=== PATIENT | male | born 1990 | race African-American/Black ===

== ENCOUNTER 2016-05-25 19:00 | Emergency (ER) | payer OTHER ==
[2016-05-25] MEDS ORDERED: ONDANSETRON 4MG/2ML VIAL (J2405) As Ordered ONE (19:39)
[2016-05-25] MEDS ORDERED: KETOROLAC 30 MG/ML VIAL (J1885) As Ordered ONE (19:39)
[2016-05-25 20:06] LABS: BASO % 0.3 % (0.0-1.0); EOS # 0.2 K/mm3 (0.0-0.50); EOS % 3.8 % (0.0-3.0); LARGE UNSTAINED CELL # 0.1 K/mm3 (0.0-0.4); LARGE UNSTAINED CELL % 3.3 % (0.0-4.0); LYMPH # 1.5 K/mm3 (1.5-6.5); LYMPH % 31.3 % (24.0-44.0); MEAN CORPUSCULAR HEMOGLOBIN 28.4 pg (27.0-33.0); MEAN CORPUSCULAR HGB CONC 32.9 g/dl (32.0-36.5); MEAN CORPUSCULAR VOLUME 86.6 fl (80.0-96.0); MONO # 0.5 K/mm3 (0.0-0.8); MONO % 10.6 % (0.0-5.0); NEUTROPHILS # 2.2 K/mm3 (1.8-7.7); NEUTROPHILS % 50.6 % (36.0-66.0); PLATELET COUNT, AUTOMATED 222 k/mm3 (150-450); RED CELL DISTRIBUTION WIDTH 12.4 % (11.5-14.5); WHITE BLOOD COUNT 4.4 K/mm3 (4.0-10.0)
[2016-05-25 20:23] LABS: INR 1.02
[2016-05-25 20:32] LABS: ALBUMIN 3.6 GM/DL (3.2-5.2); ALBUMIN/GLOBULIN RATIO 1.13 (1.00-1.93); ALKALINE PHOSPHATASE 107 U/L (45-117); ALT/SGPT 52 U/L (12-78); AMYLASE 77 U/L (25-115); ANION GAP 8 MEQ/L (8-16); AST/SGOT 23 U/L (15-37); BILIRUBIN,DIRECT 0.1 MG/DL (0.0-0.2); BILIRUBIN,TOTAL 0.4 MG/DL (0.2-1.0); BLOOD UREA NITROGEN 13 MG/DL (7-18); CALCIUM LEVEL 8.6 MG/DL (8.5-10.1); CARBON DIOXIDE LEVEL 31 MEQ/L (21-32); CHLORIDE LEVEL 105 MEQ/L (98-107); GLOMERULAR FILTRATION RATE > 60.0 (>60); GLUCOSE, FASTING 64 MG/DL (70-105); POTASSIUM SERUM 3.7 MEQ/L (3.5-5.1); SODIUM LEVEL 144 MEQ/L (136-145); TOTAL PROTEIN 6.8 GM/DL (6.4-8.2)
--- NOTE | 2016-05-25 20:52 | EDDOCDS ---
Nurse's Notes [facility] Name: Rosi Banks Age: 26 yrs Sex: Male : 1990 Arrival Date: 05/25/2016 Time: 19:00 Bed I8 / 16 Private MD: NO PRIMARY PHYSICIAN, .; DEAN Lang Diagnosis: Nausea;Abdominal and pelvic pain Presentation: 05/25 19:14 Presenting complaint: Patient states: nausea x3-4 days. Mid abd pain. Denies ttb diarrhea/constipation. Occasionally fever. Adult Sepsis Screening: The patient does not have new or worsening altered mentation. Patient's respiratory rate is less than 22. Systolic blood pressure is greater than 100. Patient has a qSOFA score of 0- Negative Sepsis Screen. Suicide/Homicide risk assessment- the patient denies having any suicidal and/or homicidal ideations and does not present with any other emotional, behavioral or mental health complaints. 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 Transition of care: patient was not received from another setting of care. 19:14 Acuity: JEYSON Level 4 ttb 19:14 Method Of Arrival: Walkin/Carried/Asstd ttb Triage Assessment: 19:17 General: Appears in no apparent distress, well nourished, well groomed, Behavior is ttb appropriate for age, cooperative, pleasant. Pain: Location: mid abd Pain currently is 6 out of 10 on a pain scale. HIV screening NA for this visit Offered previously. Neurological: Level of Consciousness is awake, alert. Cardiovascular: Chest pain is denied. Respiratory: No deficits noted. Airway is patent Denies cough, shortness of breath. GI: Reports lower abdominal pain, upper abd pain, nausea, Denies constipation, diarrhea. Derm: Skin is normal. Historical: - Allergies: novaine; PENICILLINS; - Home Meds: 1. Tylenol 325 mg Oral tab 2 tabs every 3 hours (Last dose: 05/25/2016 08:00) 2. ondansetron HCl 4 mg Oral tab 1 tabs as needed (Last dose: 05/25/2016 09:00) - PMHx: none; - PSHx: none; - Social history: Smoking status: Patient states was never smoker of tobacco. Patient/guardian denies using alcohol, street drugs, No barriers to communication noted, The patient speaks fluent Uzbek, Speaks appropriately for age. - Family history: Not pertinent. - : The pt / caregiver states he / she is not on anticoagulants. Home medication list is obtained from the patient. - Exposure Risk Screening:: None identified. Screenin:36 Screening information is obtained from the patient. Fall risk: No risks identified. kas2 Assistance ADL's: requires no assistance with activities of daily living. Abuse/DV Screen: The patient / caregiver reports he/she is: not in a situation that causes fear, pain or injury. Nutritional screening: No deficits noted. Advance Directives: Currently, there is no health care proxy. There is no active DNR order. There is no living will. There is no Power of Regional Business Manager. home support is adequate. Assessment: 19:35 General: Appears in no apparent distress, comfortable, well nourished, well groomed, kas2 Behavior is appropriate for age, cooperative. Pain: Location: headache and abdominal pain Pain currently is 5 out of 10 on a pain scale. Neurological: Level of Consciousness is awake, alert, Oriented to person, place, time. Cardiovascular: Capillary refill < 3 seconds Rhythm is regular. Respiratory: Airway is patent Respiratory effort is even, unlabored, Respiratory pattern is regular, symmetrical, Breath sounds are clear bilaterally. GI: Abdomen is flat, non- distended Bowel sounds present X 4 quads. Abd is tender to palpation X 4 quads. Derm: Skin is intact, Skin is dry, Skin temperature is warm. 20:33 General: Appears in no apparent distress, comfortable, Behavior is appropriate for age, kas2 cooperative. Pain: Denies pain. Neurological: Level of Consciousness is awake, alert, Oriented to person, place, time. Respiratory: Airway is patent Respiratory effort is even, unlabored, Respiratory pattern is regular, symmetrical. Derm: Skin is intact, Skin is dry, Skin temperature is warm. 20:49 General: Appears in no apparent distress, Behavior is cooperative, Pt reports decreased ld5 nausea and pain. Respiratory: Airway is patent Respiratory effort is even, unlabored. Vital Signs: 19:02 BP 166 / 83; Pulse 72; Resp 17; Temp 97.6(T); Pulse Ox 99% on R/A; Weight 72.57 kg (R); lr2 Height 5 ft. 10 in. (177.80 cm) (R); Pain 7/10; 20:49 BP 149 / 81; Pulse 79; Resp 16; Temp 98; Pulse Ox 97% on R/A; Pain 2/10; ld5 19:02 Body Mass Index 22.96 (72.57 kg, 177.80 cm) lr2 Vitals: 19:02 Log In Time: May 25, 2016 at 19:00. lr2 ED Course: 19:01 Patient visited by Mulu Sigala. lr2 19:01 Patient moved to Waiting lr2 19:02 NO PRIMARY PHYSICIAN, . is Private Physician. lr2 [facility]. lr2 19:02 Patient moved to Pre RCE lr2 19:15 Triage Initiated ttb 19:31 [facility]. ke 19:31 Patient visited by Sergio Rodriguez FNP. ke 19:31 Patient visited by Sergio Rodriguez FNP. ke 19:31 Patient moved to I8 / 16 ke 19:33 Patient visited by Crystal Rangel RN. kas2 19:36 Patient visited by Crystal Rangel RN. kas2 19:52 CBC with Diff Sent. kas2 19:52 Lipase Sent. kas2 19:52 Liver Profile Sent. kas2 19:52 Prothrombin Time Profile\E\INR Sent. kas2 19:52 Urinalysis Sent. kas2 19:52 Urine Culture Sent. kas2 19:53 Patient visited by Crystal Rangel RN. kas2 19:53 Inserted saline lock: 20 gauge in left antecubital area and blood collected. The kas2 patient tolerated the procedure well. No procedures done that require assistance. 20:19 Patient visited by Sergio Rodriguez FNP. ke 20:34 Patient visited by Crystal Rangel RN. kas2 20:41 Lang, [facility] is Referral Physician. ke 20:49 The patient / caregiver is instructed regarding the plan of care and ED course. Patient ld5 has correct armband on for positive identification. 20:49 Discontinued lock intact, bleeding controlled, pressure dressing applied, No ld5 redness/swelling at site. 20:51 Patient visited by Mulu Max RN. ld5 Administered Medications: 19:52 Drug: NS 0.9% 1000 ml [sodium chloride 0.9 % intravenous solution] Route: IV; Rate: kas2 bolus; Site: left antecubital; 20:50 Follow up: IV Status: Completed infusion; IV Intake: 1000ml ld5 19:53 Drug: Ondansetron 4 mg [ondansetron HCl 2 mg/mL intravenous solution (2 mL)] Route: kas2 IVP; Site: left antecubital; 20:50 Follow up: Response: Nausea is decreased ld5 19:53 Drug: ketorolac 30 mg [ketorolac 30 mg/mL (1 mL) injection solution (1 mL)] Route: IVP; kas2 Site: left antecubital; 20:51 Follow up: Response: Pain is decreased ld5 Intake: 20:50 IV: 1000.00ml; Total: 1000.00ml. ld5 Order Results: Lab Order: Amylase; SPEC'M 05/25/16 19:45 Test: AMYLASE; Value: 77; Range: 25-115; Units: U/L; Status: F Lab Order: Basic Metabolic Profile; SPEC'M 05/25/16 19:45 Test: GLUCOSE, FASTING; Value: 64; Range: 70-105; Abnormal: Below low normal; Units: MG/DL; Status: F Test: BLOOD UREA NITROGEN; Value: 13; Range: 7-18; Units: MG/DL; Status: F Test: CREATININE FOR GFR; Value: 1.10; Range: 0.70-1.30; Units: MG/DL; Status: F Test: GLOMERULAR FILTRATION RATE; Value: > 60.0; Range: >60; Status: F Test: SODIUM LEVEL; Value: 144; Range: 136-145; Units: MEQ/L; Status: F Test: POTASSIUM SERUM; Value: 3.7; Range: 3.5-5.1; Units: MEQ/L; Status: F Test: CHLORIDE LEVEL; Value: 105; Range: 98-107; Units: MEQ/L; Status: F Test: CARBON DIOXIDE LEVEL; Value: 31; Range: 21-32; Units: MEQ/L; Status: F Test: ANION GAP; Value: 8; Range: 8-16; Units: MEQ/L; Status: F Test: CALCIUM LEVEL; Value: 8.6; Range: 8.5-10.1; Units: MG/DL; Status: F Test Note: ; Units are mL/min/1.73 m2 Chronic Kidney Disease Staging per NKF: Stage I & II GFR >=60 Normal to Mildly Decreased Stage III GFR 30-59 Moderately Decreased Stage IV GFR 15-29 Severely Decreased Stage V GFR <15 Very Little GFR Left ESRD GFR <15 on DOPE WORKER Lab Order: CBC with Diff; CHRISTI 05/25/16 19:45 Test: WHITE BLOOD COUNT; Value: 4.4; Range: 4.0-10.0; Units: K/mm3; Status: F Test: RED BLOOD COUNT; Value: 5.46; Range: 4.30-6.10; Units: M/mm3; Status: F Test: HEMOGLOBIN; Value: 15.5; Range: 14.0-18.0; Units: g/dl; Status: F Test: HEMATOCRIT; Value: 47.3; Range: 42.0-52.0; Units: %; Status: F Test: MEAN CORPUSCULAR VOLUME; Value: 86.6; Range: 80.0-96.0; Units: fl; Status: F Test: MEAN CORPUSCULAR HEMOGLOBIN; Value: 28.4; Range: 27.0-33.0; Units: pg; Status: F Test: MEAN CORPUSCULAR HGB CONC; Value: 32.9; Range: 32.0-36.5; Units: g/dl; Status: F Test: RED CELL DISTRIBUTION WIDTH; Value: 12.4; Range: 11.5-14.5; Units: %; Status: F Test: PLATELET COUNT, AUTOMATED; Value: 222; Range: 150-450; Units: k/mm3; Status: F Test: NEUTROPHILS %; Value: 50.6; Range: 36.0-66.0; Units: %; Status: F Test: LYMPH %; Value: 31.3; Range: 24.0-44.0; Units: %; Status: F Test: MONO %; Value: 10.6; Range: 0.0-5.0; Abnormal: Above high normal; Units: %; Status: F Test: EOS %; Value: 3.8; Range: 0.0-3.0; Abnormal: Above high normal; Units: %; Status: F Test: BASO %; Value: 0.3; Range: 0.0-1.0; Units: %; Status: F Test: LARGE UNSTAINED CELL %; Value: 3.3; Range: 0.0-4.0; Units: %; Status: F Test: NEUTROPHILS #; Value: 2.2; Range: 1.8-7.7; Units: K/mm3; Status: F Test: LYMPH #; Value: 1.5; Range: 1.5-6.5; Units: K/mm3; Status: F Test: MONO #; Value: 0.5; Range: 0.0-0.8; Units: K/mm3; Status: F Test: EOS #; Value: 0.2; Range: 0.0-0.50; Units: K/mm3; Status: F Test: BASO #; Value: 0.0; Range: 0.0-0.2; Units: K/mm3; Status: F Test: LARGE UNSTAINED CELL #; Value: 0.1; Range: 0.0-0.4; Units: K/mm3; Status: F Lab Order: Lipase; [facility]' 05/25/16 19:45 Test: LIPASE; Value: 84; Range: 73-393; Units: U/L; Status: F Lab Order: Liver Profile; [facility]' 05/25/16 19:45 Test: AST/SGOT; Value: 23; Range: 15-37; Units: U/L; Status: F Test: ALT/SGPT; Value: 52; Range: 12-78; Units: U/L; Status: F Test: ALKALINE PHOSPHATASE; Value: 107; Range: 45-117; Units: U/L; Status: F Test: BILIRUBIN,TOTAL; Value: 0.4; Range: 0.2-1.0; Units: MG/DL; Status: F Test: BILIRUBIN,DIRECT; Value: 0.1; Range: 0.0-0.2; Units: MG/DL; Status: F Test: TOTAL PROTEIN; Value: 6.8; Range: 6.4-8.2; Units: GM/DL; Status: F Test: ALBUMIN; Value: 3.6; Range: 3.2-5.2; Units: GM/DL; Status: F Test: ALBUMIN/GLOBULIN RATIO; Value: 1.13; Range: 1.00-1.93; Status: F Lab Order: Prothrombin Time Profile\E\INR; SPEC' 05/25/16 19:45 Test: PROTHROMBIN TIME; Value: 13.5; Range: 12.3-14.5; Units: SECONDS; Status: F Test: INR; Value: 1.02; Status: F Test Note: ; THERAPUTIC HUMAN INR VALUES INDICATIONS NORMAL RANGES PROPHYLAXIS/TREATMENT OF: VENOUS THROMBOSIS 2.0-3.0 PULMONARY EMBOLISM 2.0-3.0 PREVENTION OF SYSTEMIC EMBOLISM FROM: TISSUE HEART VALVES 2.0-3.0 ACUTE MYOCARDIAL INFARCTION 2.0-3.0 VALVULAR HEART DISEASE 2.0-3.0 ATRIAL FIBRILLATION 2.0-3.0 MECHANICAL VALVES(HIGH RISK) 2.5-3.5 RECURRENT MYOCARDIAL INFARCTION 2.5-3.5 Lab Order: Urinalysis; SPEC'M 05/25/16 19:45 Test: APPEARANCE, URINE; Value: CLEAR; Range: CLEAR; Status: F Test: COLOR, URINE; Value: YELLOW; Range: YELLOW; Status: F Test: PH,URINE; Value: 6.0; Range: 5.0-9.0; Units: UNITS; Status: F Test: SPECIFIC GRAVITY URINE AUTO; Value: 1.014; Range: 1.002-1.035; Status: F Test: PROTEIN, URINE AUTO; Value: NEGATIVE; Range: NEGATIVE; Units: mg/dL; Status: F Test: GLUCOSE, URINE (UA) AUTO; Value: NEGATIVE; Range: NEGATIVE; Units: mg/dL; Status: F Test: KETONE, URINE AUTO; Value: NEGATIVE; Range: NEGATIVE; Units: mg/dL; Status: F Test: UROBILINOGEN, URINE AUTO; Value: 0.2; Range: 0.0-2.0; Units: mg/dL; Status: F Test: BILIRUBIN, URINE AUTO; Value: NEGATIVE; Range: NEGATIVE; Status: F Test: NITRITE, URINE AUTO; Value: NEGATIVE; Range: NEGATIVE; Status: F Test: LEUKOCYTE ESTERASE, URINE AUTO; Value: NEGATIVE; Range: NEGATIVE; Status: F Test: BLOOD, URINE BLOOD; Value: 1+; Range: NEGATIVE; Abnormal: Above high normal; Status: F Test: WBC, URINE AUTO; Value: 0; Range: 0-3; Units: /HPF; Status: F Test: RBC, URINE AUTO; Value: 1; Range: 0-3; Units: /HPF; Status: F Test: BACTERIA, URINE AUTO; Value: NEGATIVE; Range: NEGATIVE; Status: F Test: SQUAMOUS EPITHELIAL CELL UR AU; Value: 0; Range: 0-6; Units: /HPF; Status: F Test: HYALINE CAST, URINE AUTO; Value: 0; Range: 0-1; Units: /LPF; Status: F Outcome: 20:42 Discharge ordered by Provider. 20:49 Discharge Assessment: Patient awake, alert and oriented x 3. No cognitive and/or ld5 functional deficits noted. Patient verbalized understanding of disposition instructions. patient administered narcotics - no. The following High Risk Discharge criteria are identified: None. Discharged to home ambulatory. Condition: stable. Discharge instructions given to patient, Instructed on discharge instructions, follow up and referral plans. Demonstrated understanding of instructions, Pt was receptive of discharge instructions/ teaching. No special radiology studies were completed. Property :Personal belongings accompany Pt. 20:51 Patient left the ED. ld5 Signatures: Sergio Rodriguez, Mulu Neves RN RN shirley5 Edwige Swann RN RN ttb Smith, Kim, RN RN cameron2 Mulu Sigala2 [facility] DIVISIONSparkle
--- NOTE | 2016-05-25 20:52 | EDDOCDS ---
Physician Documentation [facility] Name: Rosi Banks Age: 26 yrs Sex: Male : 1990 Arrival Date: 05/25/2016 Time: 19:00 Bed I8 / 16 Private MD: NO PRIMARY PHYSICIAN, .; DEAN Lang Disposition: 05/25/16 20:42 Discharged to Home/Self Care. Impression: Nausea, Abdominal and pelvic pain. - Condition is Stable. - Discharge Instructions: Abdominal Pain, Adult. - Medication Reconciliation, Local Pharmacy Hours form. - Follow up: DEAN Lang; When: 2 - 3 days; Reason: Recheck today's complaints, Continuance of care. - Problem is an ongoing problem. - Symptoms are unchanged. Historical: - Allergies: novaine; PENICILLINS; - Home Meds: 1. Tylenol 325 mg Oral tab 2 tabs every 3 hours (Last dose: 05/25/2016 08:00) 2. ondansetron HCl 4 mg Oral tab 1 tabs as needed (Last dose: 05/25/2016 09:00) - PMHx: none; - PSHx: none; - Social history: Smoking status: Patient states was never smoker of tobacco. Patient/guardian denies using alcohol, street drugs, No barriers to communication noted, The patient speaks fluent Italian, Speaks appropriately for age. - Family history: Not pertinent. - : The pt / caregiver states he / she is not on anticoagulants. Home medication list is obtained from the patient. - Exposure Risk Screening:: None identified. Vital Signs: 05/25 19:02 BP 166 / 83; Pulse 72; Resp 17; Temp 97.6(T); Pulse Ox 99% on R/A; Weight 72.57 kg / lr2 159.99 lbs (R); Height 5 ft. 10 in. (177.80 cm) (R); Pain 7/10; 20:49 BP 149 / 81; Pulse 79; Resp 16; Temp 98; Pulse Ox 97% on R/A; Pain 2/10; ld5 19:02 Body Mass Index 22.96 (72.57 kg, 177.80 cm) lr2 MDM: 19:37 NS 0.9% 1000 ml IV at bolus once ordered. fern 19:37 Ondansetron 4 mg IVP once ordered. ke 19:37 ketorolac 30 mg IVP once ordered. ke 19:37 IV Saline Lock ordered. ke 19:37 Undress patient appropriately for examination ordered. ke 19:38 Amylase Ordered. EDMS 19:38 Basic Metabolic Profile Ordered. EDMS 19:38 CBC with Diff Ordered. EDMS 19:38 Lipase Ordered. EDMS 19:38 Liver Profile Ordered. EDMS 19:38 Prothrombin Time Profile\E\INR Ordered. EDMS 19:38 Urinalysis Ordered. EDMS 19:38 Urine Culture Ordered. EDMS 19:38 Abdomen, Flat\E\Upright,PA Chest Ordered. EDMS 19:38 NOTHING BY MOUTH+DIET ordered. EDMS 20:38 Basic Metabolic Profile Reviewed. ke 20:38 CBC with Diff Reviewed. ke 20:38 Urinalysis Reviewed. ke 20:38 Amylase Reviewed. ke 20:38 Lipase Reviewed. ke 20:38 Liver Profile Reviewed. ke 20:38 Prothrombin Time Profile\E\INR Reviewed. ke 20:43 Financial registration complete. gjb Administered Medications: 19:52 Drug: NS 0.9% 1000 ml [sodium chloride 0.9 % intravenous solution] Route: IV; Rate: kas2 bolus; Site: left antecubital; 20:50 Follow up: IV Status: Completed infusion; IV Intake: 1000ml ld5 19:53 Drug: Ondansetron 4 mg [ondansetron HCl 2 mg/mL intravenous solution (2 mL)] Route: kas2 IVP; Site: left antecubital; 20:50 Follow up: Response: Nausea is decreased ld5 19:53 Drug: ketorolac 30 mg [ketorolac 30 mg/mL (1 mL) injection solution (1 mL)] Route: IVP; kas2 Site: left antecubital; 20:51 Follow up: Response: Pain is decreased ld5 Signatures: Dispatcher [employer] EDMS Sergio Rodriguez FNP [employer] Mulu Kramer RN RN ld5 Edwige Swann RN RN ttb Beck, Gabriela gjb Smith, Kim RN kas2 MTDD
--- NOTE | 2016-05-26 10:11 | REP ---
ACUTE ABDOMINAL SERIES: 05/25/2016. Clinical history: Abdominal pain. Findings: No prior study. PA chest: Lungs are adequately inflated. There is no infiltrate or effusion. The heart, mediastinal, and hilar contours are normal. Airway intact. Bony thorax unremarkable . No free air under the diaphragm. Flat upright abdomen. Gas pattern is nonspecific. There is an air-fluid level in the left upper quadrant with one small bowel loop mildly prominent but not abnormally dilated. This is a nonspecific pattern. There is no obstruction, mass or free air. No abnormal calcification. Bones intact. Impression: 1. Nonspecific gas pattern without obstruction, mass or free air. No abnormal calcifications. 2. Negative PA chest. Signed by Toni Saleh MD 05/26/2016 07:29 P
--- NOTE | 2016-05-27 21:52 | EDDOCDS ---
Physician Documentation [facility] Name: Rosi Banks Age: 26 yrs Sex: Male : 1990 Arrival Date: 05/25/2016 Time: 19:00 Bed I8 / 16 Private MD: NO PRIMARY PHYSICIAN, .; DEAN Lang Disposition: 05/25/16 20:42 Discharged to Home/Self Care. Impression: Nausea, Abdominal and pelvic pain. - Condition is Stable. - Discharge Instructions: Abdominal Pain, Adult. - Medication Reconciliation, Local Pharmacy Hours form. - Follow up: DEAN Lang; When: 2 - 3 days; Reason: Recheck today's complaints, Continuance of care. - Problem is an ongoing problem. - Symptoms are unchanged. Historical: - Allergies: novaine; PENICILLINS; - Home Meds: 1. Tylenol 325 mg Oral tab 2 tabs every 3 hours (Last dose: 05/25/2016 08:00) 2. ondansetron HCl 4 mg Oral tab 1 tabs as needed (Last dose: 05/25/2016 09:00) - PMHx: none; - PSHx: none; - Social history: Smoking status: Patient states was never smoker of tobacco. Patient/guardian denies using alcohol, street drugs, No barriers to communication noted, The patient speaks fluent Ghanaian, Speaks appropriately for age. - Family history: Not pertinent. - : The pt / caregiver states he / she is not on anticoagulants. Home medication list is obtained from the patient. - Exposure Risk Screening:: None identified. Vital Signs: 05/25 19:02 BP 166 / 83; Pulse 72; Resp 17; Temp 97.6(T); Pulse Ox 99% on R/A; Weight 72.57 kg / lr2 159.99 lbs (R); Height 5 ft. 10 in. (177.80 cm) (R); Pain 7/10; 20:49 BP 149 / 81; Pulse 79; Resp 16; Temp 98; Pulse Ox 97% on R/A; Pain 2/10; ld5 19:02 Body Mass Index 22.96 (72.57 kg, 177.80 cm) lr2 MDM: 19:37 NS 0.9% 1000 ml IV at bolus once ordered. fern 19:37 Ondansetron 4 mg IVP once ordered. ke 19:37 ketorolac 30 mg IVP once ordered. ke 19:37 IV Saline Lock ordered. ke 19:37 Undress patient appropriately for examination ordered. ke 19:38 Amylase Ordered. EDMS 19:38 Basic Metabolic Profile Ordered. EDMS 19:38 CBC with Diff Ordered. EDMS 19:38 Lipase Ordered. EDMS 19:38 Liver Profile Ordered. EDMS 19:38 Prothrombin Time Profile\E\INR Ordered. EDMS 19:38 Urinalysis Ordered. EDMS 19:38 Urine Culture Ordered. EDMS 19:38 Abdomen, Flat\E\Upright,PA Chest Ordered. EDMS 19:38 NOTHING BY MOUTH+DIET ordered. EDMS 20:38 Basic Metabolic Profile Reviewed. ke 20:38 CBC with Diff Reviewed. ke 20:38 Urinalysis Reviewed. ke 20:38 Amylase Reviewed. ke 20:38 Lipase Reviewed. ke 20:38 Liver Profile Reviewed. ke 20:38 Prothrombin Time Profile\E\INR Reviewed. ke 20:43 Financial registration complete. [facility] 20:53 [facility] Payment Agreement was scanned into [employer] and attached to record. [facility] 05/26 10:30 T-Sheet-- Draft Copy was scanned into [employer] and attached to record. gb Administered Medications: 05/25 19:52 Drug: NS 0.9% 1000 ml [sodium chloride 0.9 % intravenous solution] Route: IV; Rate: kas2 bolus; Site: left antecubital; 20:50 Follow up: IV Status: Completed infusion; IV Intake: 1000ml ld5 19:53 Drug: Ondansetron 4 mg [ondansetron HCl 2 mg/mL intravenous solution (2 mL)] Route: kas2 IVP; Site: left antecubital; 20:50 Follow up: Response: Nausea is decreased ld5 19:53 Drug: ketorolac 30 mg [ketorolac 30 mg/mL (1 mL) injection solution (1 mL)] Route: IVP; kas2 Site: left antecubital; 20:51 Follow up: Response: Pain is decreased ld5 Signatures: Dispatcher [employer] EDMS Mini Yuan, Reg Reg gb Sergio Rodriguez, AN/SSN 2 4 OPERATOR AN/SSN 2 4 OPERATOR Mulu Kramer RN RN ld5 Edwige Swann RN RN Kita Mercado Kim RN kas2 The chart was reviewed and I authenticate all verbal orders and agree with the evaluation and treatment provided.Attachments: 20:53 [facility] Payment Agreement gjb 05/26 10:30 T-Sheet-- Draft Copy gb Chart Complete MTDD
--- NOTE | 2016-05-27 21:52 | EDDOCDS ---
Nurse's Notes [facility] Name: Rosi Banks Age: 26 yrs Sex: Male : 1990 Arrival Date: 05/25/2016 Time: 19:00 Bed I8 / 16 Private MD: NO PRIMARY PHYSICIAN, .; DEAN Lang Diagnosis: Nausea;Abdominal and pelvic pain Presentation: 05/25 19:14 Presenting complaint: Patient states: nausea x3-4 days. Mid abd pain. Denies ttb diarrhea/constipation. Occasionally fever. Adult Sepsis Screening: The patient does not have new or worsening altered mentation. Patient's respiratory rate is less than 22. Systolic blood pressure is greater than 100. Patient has a qSOFA score of 0- Negative Sepsis Screen. Suicide/Homicide risk assessment- the patient denies having any suicidal and/or homicidal ideations and does not present with any other emotional, behavioral or mental health complaints. 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 Transition of care: patient was not received from another setting of care. 19:14 Acuity: JEYSON Level 4 ttb 19:14 Method Of Arrival: Walkin/Carried/Asstd ttb Triage Assessment: 19:17 General: Appears in no apparent distress, well nourished, well groomed, Behavior is ttb appropriate for age, cooperative, pleasant. Pain: Location: mid abd Pain currently is 6 out of 10 on a pain scale. HIV screening NA for this visit Offered previously. Neurological: Level of Consciousness is awake, alert. Cardiovascular: Chest pain is denied. Respiratory: No deficits noted. Airway is patent Denies cough, shortness of breath. GI: Reports lower abdominal pain, upper abd pain, nausea, Denies constipation, diarrhea. Derm: Skin is normal. Historical: - Allergies: novaine; PENICILLINS; - Home Meds: 1. Tylenol 325 mg Oral tab 2 tabs every 3 hours (Last dose: 05/25/2016 08:00) 2. ondansetron HCl 4 mg Oral tab 1 tabs as needed (Last dose: 05/25/2016 09:00) - PMHx: none; - PSHx: none; - Social history: Smoking status: Patient states was never smoker of tobacco. Patient/guardian denies using alcohol, street drugs, No barriers to communication noted, The patient speaks fluent Lao, Speaks appropriately for age. - Family history: Not pertinent. - : The pt / caregiver states he / she is not on anticoagulants. Home medication list is obtained from the patient. - Exposure Risk Screening:: None identified. Screenin:36 Screening information is obtained from the patient. Fall risk: No risks identified. kas2 Assistance ADL's: requires no assistance with activities of daily living. Abuse/DV Screen: The patient / caregiver reports he/she is: not in a situation that causes fear, pain or injury. Nutritional screening: No deficits noted. Advance Directives: Currently, there is no health care proxy. There is no active DNR order. There is no living will. There is no Power of Jewel Bearing Facer. home support is adequate. Assessment: 19:35 General: Appears in no apparent distress, comfortable, well nourished, well groomed, kas2 Behavior is appropriate for age, cooperative. Pain: Location: headache and abdominal pain Pain currently is 5 out of 10 on a pain scale. Neurological: Level of Consciousness is awake, alert, Oriented to person, place, time. Cardiovascular: Capillary refill < 3 seconds Rhythm is regular. Respiratory: Airway is patent Respiratory effort is even, unlabored, Respiratory pattern is regular, symmetrical, Breath sounds are clear bilaterally. GI: Abdomen is flat, non- distended Bowel sounds present X 4 quads. Abd is tender to palpation X 4 quads. Derm: Skin is intact, Skin is dry, Skin temperature is warm. 20:33 General: Appears in no apparent distress, comfortable, Behavior is appropriate for age, kas2 cooperative. Pain: Denies pain. Neurological: Level of Consciousness is awake, alert, Oriented to person, place, time. Respiratory: Airway is patent Respiratory effort is even, unlabored, Respiratory pattern is regular, symmetrical. Derm: Skin is intact, Skin is dry, Skin temperature is warm. 20:49 General: Appears in no apparent distress, Behavior is cooperative, Pt reports decreased ld5 nausea and pain. Respiratory: Airway is patent Respiratory effort is even, unlabored. Vital Signs: 19:02 BP 166 / 83; Pulse 72; Resp 17; Temp 97.6(T); Pulse Ox 99% on R/A; Weight 72.57 kg (R); lr2 Height 5 ft. 10 in. (177.80 cm) (R); Pain 7/10; 20:49 BP 149 / 81; Pulse 79; Resp 16; Temp 98; Pulse Ox 97% on R/A; Pain 2/10; ld5 19:02 Body Mass Index 22.96 (72.57 kg, 177.80 cm) lr2 Vitals: 19:02 Log In Time: May 25, 2016 at 19:00. lr2 ED Course: 19:01 Patient visited by Mulu Sigala. lr2 19:01 Patient moved to Waiting lr2 19:02 NO PRIMARY PHYSICIAN, . is Private Physician. lr2 19:[address] [facility] is Private Physician. lr2 19:02 Patient moved to Pre RCE lr2 19:15 Triage Initiated ttb 19:31 Sergio Rodriguez FNP is [facility]. ke 19:31 Patient visited by Sergio Rodriguez FNP. ke 19:31 Patient visited by Sergio Rodriguez FNP. ke 19:31 Patient moved to I8 / 16 ke 19:33 Patient visited by Crystal Rangel RN. kas2 19:36 Patient visited by Crystal Rangel RN. kas2 19:52 CBC with Diff Sent. kas2 19:52 Lipase Sent. kas2 19:52 Liver Profile Sent. kas2 19:52 Prothrombin Time Profile\E\INR Sent. kas2 19:52 Urinalysis Sent. kas2 19:52 Urine Culture Sent. kas2 19:53 Patient visited by Crystal Rangel RN. kas2 19:53 Inserted saline lock: 20 gauge in left antecubital area and blood collected. The kas2 patient tolerated the procedure well. No procedures done that require assistance. 20:19 Patient visited by Sergio Rodriguez FNP. ke 20:34 Patient visited by Crystal Rangel RN. kas2 [facility] ke 20:49 The patient / caregiver is instructed regarding the plan of care and ED course. Patient ld5 has correct armband on for positive identification. 20:49 Discontinued lock intact, bleeding controlled, pressure dressing applied, No ld5 redness/swelling at site. 20:51 Patient visited by Mulu Max RN. ld5 20:53 [facility] Payment Agreement was scanned into [employer] and attached to record. gjb 21:11 Patient name changed from Oury\S\\S\Darren\S\ to Oury\S\ \S\Darren. EDMS 05/26 10:30 T-Sheet-- Draft Copy was scanned into [employer] and attached to record. gb 10:42 Abdomen, Flat\E\Upright,PA Chest Returned. EDMS Administered Medications: 05/25 19:52 Drug: NS 0.9% 1000 ml [sodium chloride 0.9 % intravenous solution] Route: IV; Rate: kas2 bolus; Site: left antecubital; 20:50 Follow up: IV Status: Completed infusion; IV Intake: 1000ml ld5 19:53 Drug: Ondansetron 4 mg [ondansetron HCl 2 mg/mL intravenous solution (2 mL)] Route: kas2 IVP; Site: left antecubital; 20:50 Follow up: Response: Nausea is decreased ld5 19:53 Drug: ketorolac 30 mg [ketorolac 30 mg/mL (1 mL) injection solution (1 mL)] Route: IVP; kas2 Site: left antecubital; 20:51 Follow up: Response: Pain is decreased ld5 Intake: 20:50 IV: 1000.00ml; Total: 1000.00ml. ld5 Order Results: Lab Order: Amylase; SPEC'M 05/25/16 19:45 Test: AMYLASE; Value: 77; Range: 25-115; Units: U/L; Status: F Lab Order: Basic Metabolic Profile; SPEC'M 05/25/16 19:45 Test: GLUCOSE, FASTING; Value: 64; Range: 70-105; Abnormal: Below low normal; Units: MG/DL; Status: F Test: BLOOD UREA NITROGEN; Value: 13; Range: 7-18; Units: MG/DL; Status: F Test: CREATININE FOR GFR; Value: 1.10; Range: 0.70-1.30; Units: MG/DL; Status: F Test: GLOMERULAR FILTRATION RATE; Value: > 60.0; Range: >60; Status: F Test: SODIUM LEVEL; Value: 144; Range: 136-145; Units: MEQ/L; Status: F Test: POTASSIUM SERUM; Value: 3.7; Range: 3.5-5.1; Units: MEQ/L; Status: F Test: CHLORIDE LEVEL; Value: 105; Range: 98-107; Units: MEQ/L; Status: F Test: CARBON DIOXIDE LEVEL; Value: 31; Range: 21-32; Units: MEQ/L; Status: F Test: ANION GAP; Value: 8; Range: 8-16; Units: MEQ/L; Status: F Test: CALCIUM LEVEL; Value: 8.6; Range: 8.5-10.1; Units: MG/DL; Status: F Test Note: ; Units are mL/min/1.73 m2 Chronic Kidney Disease Staging per NKF: Stage I & II GFR >=60 Normal to Mildly Decreased Stage III GFR 30-59 Moderately Decreased Stage IV GFR 15-29 Severely Decreased Stage V GFR <15 Very Little GFR Left ESRD GFR <15 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 Lab Order: CBC with Diff; SPEC'M 05/25/16 19:45 Test: WHITE BLOOD COUNT; Value: 4.4; Range: 4.0-10.0; Units: K/mm3; Status: F Test: RED BLOOD COUNT; Value: 5.46; Range: 4.30-6.10; Units: M/mm3; Status: F Test: HEMOGLOBIN; Value: 15.5; Range: 14.0-18.0; Units: g/dl; Status: F Test: HEMATOCRIT; Value: 47.3; Range: 42.0-52.0; Units: %; Status: F Test: MEAN CORPUSCULAR VOLUME; Value: 86.6; Range: 80.0-96.0; Units: fl; Status: F Test: MEAN CORPUSCULAR HEMOGLOBIN; Value: 28.4; Range: 27.0-33.0; Units: pg; Status: F Test: MEAN CORPUSCULAR HGB CONC; Value: 32.9; Range: 32.0-36.5; Units: g/dl; Status: F Test: RED CELL DISTRIBUTION WIDTH; Value: 12.4; Range: 11.5-14.5; Units: %; Status: F Test: PLATELET COUNT, AUTOMATED; Value: 222; Range: 150-450; Units: k/mm3; Status: F Test: NEUTROPHILS %; Value: 50.6; Range: 36.0-66.0; Units: %; Status: F Test: LYMPH %; Value: 31.3; Range: 24.0-44.0; Units: %; Status: F Test: MONO %; Value: 10.6; Range: 0.0-5.0; Abnormal: Above high normal; Units: %; Status: F Test: EOS %; Value: 3.8; Range: 0.0-3.0; Abnormal: Above high normal; Units: %; Status: F Test: BASO %; Value: 0.3; Range: 0.0-1.0; Units: %; Status: F Test: LARGE UNSTAINED CELL %; Value: 3.3; Range: 0.0-4.0; Units: %; Status: F Test: NEUTROPHILS #; Value: 2.2; Range: 1.8-7.7; Units: K/mm3; Status: F Test: LYMPH #; Value: 1.5; Range: 1.5-6.5; Units: K/mm3; Status: F Test: MONO #; Value: 0.5; Range: 0.0-0.8; Units: K/mm3; Status: F Test: EOS #; Value: 0.2; Range: 0.0-0.50; Units: K/mm3; Status: F Test: BASO #; Value: 0.0; Range: 0.0-0.2; Units: K/mm3; Status: F Test: LARGE UNSTAINED CELL #; Value: 0.1; Range: 0.0-0.4; Units: K/mm3; Status: F Lab Order: Lipase; [facility] 05/25/16 19:45 Test: LIPASE; Value: 84; Range: 73-393; Units: U/L; Status: F Lab Order: Liver Profile; [facility] 05/25/16 19:45 Test: AST/SGOT; Value: 23; Range: 15-37; Units: U/L; Status: F Test: ALT/SGPT; Value: 52; Range: 12-78; Units: U/L; Status: F Test: ALKALINE PHOSPHATASE; Value: 107; Range: 45-117; Units: U/L; Status: F Test: BILIRUBIN,TOTAL; Value: 0.4; Range: 0.2-1.0; Units: MG/DL; Status: F Test: BILIRUBIN,DIRECT; Value: 0.1; Range: 0.0-0.2; Units: MG/DL; Status: F Test: TOTAL PROTEIN; Value: 6.8; Range: 6.4-8.2; Units: GM/DL; Status: F Test: ALBUMIN; Value: 3.6; Range: 3.2-5.2; Units: GM/DL; Status: F Test: ALBUMIN/GLOBULIN RATIO; Value: 1.13; Range: 1.00-1.93; Status: F Lab Order: Prothrombin Time Profile\E\INR; SPEC'M 05/25/16 19:45 Test: PROTHROMBIN TIME; Value: 13.5; Range: 12.3-14.5; Units: SECONDS; Status: F Test: INR; Value: 1.02; Status: F Test Note: ; THERAPUTIC HUMAN INR VALUES INDICATIONS NORMAL RANGES PROPHYLAXIS/TREATMENT OF: VENOUS THROMBOSIS 2.0-3.0 PULMONARY EMBOLISM 2.0-3.0 PREVENTION OF SYSTEMIC EMBOLISM FROM: TISSUE HEART VALVES 2.0-3.0 ACUTE MYOCARDIAL INFARCTION 2.0-3.0 VALVULAR HEART DISEASE 2.0-3.0 ATRIAL FIBRILLATION 2.0-3.0 MECHANICAL VALVES(HIGH RISK) 2.5-3.5 RECURRENT MYOCARDIAL INFARCTION 2.5-3.5 Lab Order: Urinalysis; SPEC'M 05/25/16 19:45 Test: APPEARANCE, URINE; Value: CLEAR; Range: CLEAR; Status: F Test: COLOR, URINE; Value: YELLOW; Range: YELLOW; Status: F Test: PH,URINE; Value: 6.0; Range: 5.0-9.0; Units: UNITS; Status: F Test: SPECIFIC GRAVITY URINE AUTO; Value: 1.014; Range: 1.002-1.035; Status: F Test: PROTEIN, URINE AUTO; Value: NEGATIVE; Range: NEGATIVE; Units: mg/dL; Status: F Test: GLUCOSE, URINE (UA) AUTO; Value: NEGATIVE; Range: NEGATIVE; Units: mg/dL; Status: F Test: KETONE, URINE AUTO; Value: NEGATIVE; Range: NEGATIVE; Units: mg/dL; Status: F Test: UROBILINOGEN, URINE AUTO; Value: 0.2; Range: 0.0-2.0; Units: mg/dL; Status: F Test: BILIRUBIN, URINE AUTO; Value: NEGATIVE; Range: NEGATIVE; Status: F Test: NITRITE, URINE AUTO; Value: NEGATIVE; Range: NEGATIVE; Status: F Test: LEUKOCYTE ESTERASE, URINE AUTO; Value: NEGATIVE; Range: NEGATIVE; Status: F Test: BLOOD, URINE BLOOD; Value: 1+; Range: NEGATIVE; Abnormal: Above high normal; Status: F Test: WBC, URINE AUTO; Value: 0; Range: 0-3; Units: /HPF; Status: F Test: RBC, URINE AUTO; Value: 1; Range: 0-3; Units: /HPF; Status: F Test: BACTERIA, URINE AUTO; Value: NEGATIVE; Range: NEGATIVE; Status: F Test: SQUAMOUS EPITHELIAL CELL UR AU; Value: 0; Range: 0-6; Units: /HPF; Status: F Test: HYALINE CAST, URINE AUTO; Value: 0; Range: 0-1; Units: /LPF; Status: F Lab Order: Urine Culture; SPEC'M 05/25/16 19:45 Test: URINE CULTURE; Value: <EXTERNAL COMMENT eCWMed> FULL REPORT IN LAB NOTES (eCW and Medent).; Status: F Test: URINE CULTURE; Value: URINE CULTURE RESULT NO GROWTH; Status: F Radiology Order: Abdomen, Flat\E\Upright,PA Chest Test: Abdomen, Flat\E\Upright,PA Chest REASON FOR EXAMINATION: Abdomen Pain; ACUTE ABDOMINAL SERIES: 05/25/2016.; ; Clinical history: Abdominal pain.; ; Findings: No prior study.; ; PA chest: Lungs are adequately inflated. There is no infiltrate or effusion.; The heart, mediastinal, and hilar contours are normal. Airway intact. Bony; thorax unremarkable . No free air under the diaphragm.; ; Flat upright abdomen. Gas pattern is nonspecific. There is an air-fluid level; in the left upper quadrant with one small bowel loop mildly prominent but not; abnormally dilated. This is a nonspecific pattern. There is no obstruction,; mass or free air. No abnormal calcification. Bones intact.; ; Impression:; ; 1. Nonspecific gas pattern without obstruction, mass or free air. No abnormal; calcifications.; ; 2. Negative PA chest.; ; ; Signed by; Toni Saleh MD 05/26/2016 07:29 P; Outcome: 20:42 Discharge ordered by Provider. ke 20:49 Discharge Assessment: Patient awake, alert and oriented x 3. No cognitive and/or ld5 functional deficits noted. Patient verbalized understanding of disposition instructions. patient administered narcotics - no. The following High Risk Discharge criteria are identified: None. Discharged to home ambulatory. Condition: stable. Discharge instructions given to patient, Instructed on discharge instructions, follow up and referral plans. Demonstrated understanding of instructions, Pt was receptive of discharge instructions/ teaching. No special radiology studies were completed. Property :Personal belongings accompany Pt. 20:51 Patient left the ED. ld5 Signatures: Dispatcher [employer] EDMS Mini Yuan, Reg Reg Sergio Jenkins, TIRE SERVICER TIRE SERVICER Mulu Kramer,RN RN ld5 Edwige Swann RN RN Kita Mercado Kim, RN RN kas2 Mulu Sigala lr2 Chart Complete MTDD
--- NOTE | 2016-05-27 21:52 | EDDOCDS ---
Physician Documentation [facility] Name: Rosi Banks Age: 26 yrs Sex: Male : 1990 Arrival Date: 05/25/2016 Time: 19:00 Bed I8 / 16 Private MD: NO PRIMARY PHYSICIAN, .; DEAN Lang Disposition: 05/25/16 20:42 Discharged to Home/Self Care. Impression: Nausea, Abdominal and pelvic pain. - Condition is Stable. - Discharge Instructions: Abdominal Pain, Adult. - Medication Reconciliation, Local Pharmacy Hours form. - Follow up: DEAN Lang; When: 2 - 3 days; Reason: Recheck today's complaints, Continuance of care. - Problem is an ongoing problem. - Symptoms are unchanged. Historical: - Allergies: novaine; PENICILLINS; - Home Meds: 1. Tylenol 325 mg Oral tab 2 tabs every 3 hours (Last dose: 05/25/2016 08:00) 2. ondansetron HCl 4 mg Oral tab 1 tabs as needed (Last dose: 05/25/2016 09:00) - PMHx: none; - PSHx: none; - Social history: Smoking status: Patient states was never smoker of tobacco. Patient/guardian denies using alcohol, street drugs, No barriers to communication noted, The patient speaks fluent Burundian, Speaks appropriately for age. - Family history: Not pertinent. - : The pt / caregiver states he / she is not on anticoagulants. Home medication list is obtained from the patient. - Exposure Risk Screening:: None identified. Vital Signs: 05/25 19:02 BP 166 / 83; Pulse 72; Resp 17; Temp 97.6(T); Pulse Ox 99% on R/A; Weight 72.57 kg / lr2 159.99 lbs (R); Height 5 ft. 10 in. (177.80 cm) (R); Pain 7/10; 20:49 BP 149 / 81; Pulse 79; Resp 16; Temp 98; Pulse Ox 97% on R/A; Pain 2/10; ld5 19:02 Body Mass Index 22.96 (72.57 kg, 177.80 cm) lr2 MDM: 19:37 NS 0.9% 1000 ml IV at bolus once ordered. fern 19:37 Ondansetron 4 mg IVP once ordered. ke 19:37 ketorolac 30 mg IVP once ordered. ke 19:37 IV Saline Lock ordered. ke 19:37 Undress patient appropriately for examination ordered. ke 19:38 Amylase Ordered. EDMS 19:38 Basic Metabolic Profile Ordered. EDMS 19:38 CBC with Diff Ordered. EDMS 19:38 Lipase Ordered. EDMS 19:38 Liver Profile Ordered. EDMS 19:38 Prothrombin Time Profile\E\INR Ordered. EDMS 19:38 Urinalysis Ordered. EDMS 19:38 Urine Culture Ordered. EDMS 19:38 Abdomen, Flat\E\Upright,PA Chest Ordered. EDMS 19:38 NOTHING BY MOUTH+DIET ordered. EDMS 20:38 Basic Metabolic Profile Reviewed. ke 20:38 CBC with Diff Reviewed. ke 20:38 Urinalysis Reviewed. ke 20:38 Amylase Reviewed. ke 20:38 Lipase Reviewed. ke 20:38 Liver Profile Reviewed. ke 20:38 Prothrombin Time Profile\E\INR Reviewed. ke 20:43 Financial registration complete. [facility] 20:53 [facility] Payment Agreement was scanned into [employer] and attached to record. [facility] 05/26 10:30 T-Sheet-- Draft Copy was scanned into [employer] and attached to record. gb Administered Medications: 05/25 19:52 Drug: NS 0.9% 1000 ml [sodium chloride 0.9 % intravenous solution] Route: IV; Rate: kas2 bolus; Site: left antecubital; 20:50 Follow up: IV Status: Completed infusion; IV Intake: 1000ml ld5 19:53 Drug: Ondansetron 4 mg [ondansetron HCl 2 mg/mL intravenous solution (2 mL)] Route: kas2 IVP; Site: left antecubital; 20:50 Follow up: Response: Nausea is decreased ld5 19:53 Drug: ketorolac 30 mg [ketorolac 30 mg/mL (1 mL) injection solution (1 mL)] Route: IVP; kas2 Site: left antecubital; 20:51 Follow up: Response: Pain is decreased ld5 Signatures: Dispatcher [employer] EDMS Mini Yuan, Reg Reg gb Sergio Rodriguez, TILTING HEAD B[employer] SAWYER TILTING [employer]WYER Mulu Kramer RN RN ld5 Edwige Swann RN RN Kita Mercado Kim RN kas2 The chart was reviewed and I authenticate all verbal orders and agree with the evaluation and treatment provided.Attachments: 20:53 [facility] Payment Agreement gjb 05/26 10:30 T-Sheet-- Draft Copy gb Chart Complete MTDD
== END 2016-05-25 20:51 | disposition home or self-care (01) ==
LOC: M ED 19:00
DX: R10.9 Unspecified abdominal pain (principal); Z88.0 Allergy status to penicillin; Z88.8 Allergy status to other drugs, medicaments and biological substances
CPT/HCPCS: 36415; 74022; 80048; 80076; 81001; 82150; 83690; 85025; 85610; 87086; 96361; 96374; 96375; 99284; J1885; J2405